=== PATIENT | male | born 1960 | race Two or more races ===

== ENCOUNTER 2024-07-18 19:13 | Emergency (ER) | payer MEDICAID, SELFPAY ==
[2024-07-18 19:24] VITALS: BP 196/106; BP 200/91; PULSE 92; RESP 18; TEMP 36.8; O2SAT 96
--- NOTE | 2024-07-18 19:27 | PD.EDRME ---
Rapid Medical Screening Exam RME Arrival date/time: 07/18/24 19:13 63 year old male present to ED for c/o of dizziness, headache, near syncope today I have greeted and performed a focused initial assessment of this patient. A comprehensive ED assessment and evaluation of the patient, analysis of all test results, and completion of the medical decision making process will be conducted by additional ED providers. Chief Complaint: Headache Time Seen by Provider: 07/18/24 19:15 Vital signs: Vital Signs Temperature 98.2 F 07/18/24 19:24 Pulse Rate 92 07/18/24 19:24 Respiratory Rate 18 07/18/24 19:24 Blood Pressure 200/91 H 07/18/24 19:24 Pulse Oximetry (%) 96 07/18/24 19:24 Oxygen Delivery Method Room Air 07/18/24 19:24
--- NOTE | 2024-07-18 19:28 | XR_ITS ---
Examination: CT brain head without contrast. 2-D sagittal coronal reconstructions Date and time of exam:July 18, 20242001 hrs. Indications: Dizziness with syncopal episode today CTDI: vol (mGy):51.7 DLP: (mGycm):1041 Technique: Multiple CT axial sections of the brain have been obtained, 5 mm slice thickness. Contrast has not been administered. 2-D sagittal, coronal reconstructions have been obtained Low dose protocols were performed. One or more of the following dose reduction techniques were used; automated exposure control, adjustment of the mA and/or KV according to patient size, use of iterative reconstruction technique. Findings: No significant ventricular enlargement. Tiny cerebral calcifications Intra-axial or extra-axial hemorrhage density is not seen. No mass effect or midline shift Basal cisterns are not remarkable. Fourth ventricle is midline. Cranial vault intact. Impression: Negative for acute hemorrhage, mass effect or midline shift
[2024-07-18 20:01] LABS: Basophils # (Auto) 0.1 Thou/mm3 (0.0-0.2); Basophils % (Auto) 1 % (0-2.5); Eosinophils # (Auto) 0.1 Thou/mm3 (0.0-0.5); Eosinophils % (Auto) 1 % (0-10); Hematocrit 49.7 % (41.0-53.0); Hemoglobin 17.7 g/dL (13.5-16.0); Immature Granulocytes % (Auto) 0 % (0-0); Immature Granulocytes Auto 0.03 Thou/mm3 (0.00-0.00); Lymphocytes # (Auto) 1.5 Thou/mm3 (1.0-4.8); Lymphocytes % (Auto) 13 % (10-50); Mean Corpuscular HGB Conc 35.6 g/dl (31.0-37.0); Mean Corpuscular Hemoglobin 32.2 pg (25.0-35.0); Mean Corpuscular Volume 90 fL (80-100); Monocytes # (Auto) 0.6 Thou/mm3 (0.0-0.8); Monocytes % (Auto) 5 % (0-12); Neutrophils # (Auto) 9.1 Thou/mm3 (1.8-7.7); Neutrophils % (Auto) 80 % (37-80); Nucleated Red Blood Cell % 0 /100 WBC (0); Platelet Count 225 Thou/mm3 (140-440); RDW Standard Deviation 42.4 fL (35.1-43.9); White Blood Count 11.3 Thou/mm3 (3.8-10.6)
[2024-07-18 20:02] LABS: Prothrombin Time 11.2 Seconds (9.0-12.2)
[2024-07-18 20:10] LABS: Alanine Aminotransferase 41 U/L (10-49); Albumin, Serum 4.7 gm/dL (3.4-4.8); Albumin/Globulin Ratio 1.6 (1.2-2.2); Alkaline Phosphatase 107 U/L (46-116); Anion Gap 9 (7-16); Aspartate Amino Transferase 29 U/L (0-34); BUN/Creatinine Ratio 19 Ratio (12-20); Bilirubin,Total 0.7 mg/dL (0.3-1.2); Blood Urea Nitrogen 21 mg/dL (9-23); Calcium 9.8 mg/dL (8.3-10.6); Calcium (Corrected) 9.8 mg/dL (8.5-10.1); Carbon Dioxide 23.6 mMol/L (20.0-31.0); Chloride 102 mMol/L (98-107); Creatinine (Component) 1.1 mg/dL (0.6-1.3); Glucose 263 mg/dL (74-106); Osmolality,Calculated 282 (275-295); Potassium 4.2 mMol/L (3.4-5.1); Sodium 135 mMol/L (136-145); Total Protein 7.7 gm/dL (5.7-8.2); Troponin I 0.032 ng/mL (0.0-0.045); eGFR > 60 See Note
[2024-07-18 20:14] LABS: Sed Rate (ESR) 32 mm/hr (0-20)
[2024-07-18 21:28] VITALS: BP 199/101; PULSE 79; RESP 17; TEMP 36.6; O2SAT 98
--- NOTE | 2024-07-18 21:31 | PD.EDHA ---
ED Headache RME/HPI General Chief Complaint: Headache Stated Complaint: HEADACHE Time Seen by Provider: 07/18/24 19:15 Arrival date/time: 07/18/24 19:13 RME / HPI RME / HPI Narrative: 63-year-old male patient with significant history of hypertension, came in for evaluation regarding occipital headache. Onset of symptoms about 5 PM today sudden onset of occipital headache, associated with dizziness, and not feeling well. Pain radiates to the posterior neck and down to the bilateral arms. Denies any slurring of speech patient is ambulatory no blurry vision family check his blood pressure and it was about 170 systolic. In the triage patient was noted to have a blood pressure of 199/101. Denies any chest pain. Related Data Previous Rx's ?Medication ?Instructions ?Recorded ibuprofen 800 mg tablet 800 mg PO TID PRN pain #30 tabs 07/18/24 Allergies Allergy/AdvReac Type Severity Reaction Status Date / Time No Known Allergies Allergy Verified 07/18/24 19:17 Review of Systems Review of Systems Narrative Review of Systems: Review of system reviewed and within normal limits except mentioned in HPI ED Exam Narrative Physical exam: VITAL SIGNS: Reviewed. GENERAL APPEARANCE: Alert and interactive, follows commands, no acute distress, HEAD AND FACE: Non-traumatic. ENT: PERRL, pink conjunctivitis, eyelid no trauma, Mucous membrane moist. NECK: Supple, nontender, no nuchal rigidity. CHEST: No tenderness, no crepitus, no paradoxical movement, no retractions. LUNGS: Clear, well ventilated, symmetric, no rales, no wheezing, no ronchi, no stridor, good breath sounds bilaterally. HEART: Regular rate, regular rhythm, no murmur, no gallops. ABDOMEN: Soft, positive bowel sounds, nondistended, no guarding, nontender, no rebound, no masses, RECTAL: Deferred. GENITAL: Deferred. NEUROLOGICAL: Gross motor function intact sensory function intact, Appropriate for age. MUSCULOSKELETAL: low back nontender, full range of motion. EXTREMITIES: Nontender, full range of motion. SKIN: Color pink, dry, no rash, no lacerations, no abrasions, no contusions. LYMPHATICS: Deferred. Course Quality Measures none Orders Category Date Time Status EKG (ED ONLY) *Do not use* NOW Care 07/18/24 19:[address] head/brain wo con Stat Exams 07/18/24 19:28 Completed EKG (ED Only) Stat Exams 07/18/24 19:28 Ordered CBC Stat Lab 07/18/24 19:37 Completed CMP [Comprehensive Metabolic Panel] Stat Lab 07/18/24 19:37 Completed CRP [C-Reactive Protein] Stat Lab 07/18/24 19:37 Completed ESR [Sed Rate (ESR)] Stat Lab 07/18/24 19:37 Completed INR [Prothrombin Time with INR] Stat Lab 07/18/24 19:37 Completed Troponin I Stat Lab 07/18/24 19:37 Completed HYDROcodone/APAP 10/325 [[place] 10/325] Med 07/18/24 21:30 Discontinued 1 tab PO X1 ONE Ketorolac Inj [Toradol Inj] Med 07/18/24 22:47 Discontinued 30 mg IM X1 ONE NIFEdipine [Procardia] Med 07/18/24 22:48 Discontinued 20 mg PO X1 ONE hydrALAZINE HCL [Apresoline] Med 07/18/24 21:30 Discontinued 25 mg PO X1 ONE Vital Signs Vital signs: Vital Signs Temperature 98.2 F 07/18/24 19:24 Pulse Rate 92 07/18/24 19:24 Respiratory Rate 18 07/18/24 19:24 Blood Pressure 200/91 H 07/18/24 19:24 Pulse Oximetry (%) 96 07/18/24 19:24 Oxygen Delivery Method Room Air 07/18/24 19:24 Headache MDM Narrative MDM Narrative:: 63-year-old male patient with significant history of hypertension, came in for evaluation regarding occipital headache. Onset of symptoms about 5 PM today sudden onset of occipital headache, associated with dizziness, and not feeling well. Pain radiates to the posterior neck and down to the bilateral arms. Denies any slurring of speech patient is ambulatory no blurry vision family check his blood pressure and it was about 170 systolic. In the triage patient was noted to have a blood pressure of 199/101. Denies any chest pain. CT scan of the head came back unremarkable. Patient's workup also all came back normal. Patient was given Toradol IM, Procardia, and hydralazine for elevated blood pressure. Patient data External records reviewed:: None Clinical information provided by:: family Social determinants that could affect healthcare access:: none Patient has the following chronic illnesses:: Hypertension How is presenting disease/condition affected by chronic disease/condition?: exacerbated by Evaluation data The following diagnostics were reviewed and interpreted by me:: lab results and radiology exam(s) Lab and/or radiology exams considered but not ordered:: None Interpretation Summary: CT scan of the head came back unremarkable. Laboratory workup also came back unremarkable. His EKG showed normal sinus rhythm, ventricular rate of 96 bpm, no ST segment elevation depression noted. Medications / Prescriptions Medications or Prescriptions considered but not ordered:: None Medication administrations:: Medication Administration History Discontinued Medications Hydrocodone Bitart/Acetaminophen (Hydrocodone/Apap 10/325 Tab) 1 tab PO X1 ONE Stop: 07/18/24 21:31 Last Admin: 07/18/24 21:56 Dose: 1 tab Documented By: MARY Hydralazine HCl (Hydralazine Hcl 25 Mg Tablet) 25 mg PO X1 ONE Stop: 07/18/24 21:31 Last Admin: 07/18/24 21:55 Dose: 25 mg Documented By: MARY Ketorolac Tromethamine (Ketorolac Inj 60 Mg/2 Ml Vial) 30 mg IM X1 ONE Stop: 07/18/24 22:48 Last Admin: 07/18/24 23:03 Dose: 30 mg Documented By: MARY Nifedipine (Nifedipine 10 Mg Capsule) 20 mg PO X1 ONE Stop: 07/18/24 22:49 Last Admin: 07/18/24 23:02 Dose: 20 mg Documented By: MARY Patient received Procardia, Toradol, hydralazine and [place]. Prior to discharge patient's blood pressure was noted to be 154/77. Patient is not having any headache. Consultations Consultation(s) initiated? (list below): No Diagnosis Differential diagnosis headache: migraine and tension headache Most likely diagnosis given after review of the tests above:: Headache, hypertension Admission Indicated Admission indicated?: not indicated Admission Request Was there a request for admission?: No Disposition Plan Disposition Plan: Discharge Discharge Attestation Discharge Attestation: The patient and all family members were given an opportunity to ask questions and understood the discharge instructions. Discharge instructions specifically effects, indications for sooner follow up or return to the emergency department, and the expected course of current diagnosis. Patient condition: Stable Discharge Plan Plan Patient Disposition: HOME (Self Care) Disposition Comment: Stable Prescriptions/Referrals Prescriptions/Med Rec: New ibuprofen 800 mg tablet 800 mg PO TID PRN (Reason: pain) Qty: 30 0RF Referrals: Montes,Jorge Luis, PA-C [Primary Care Provider] - In 1 week Problem List Clinical Impression: Headache, HTN (hypertension) Patient/Caregiver Discharge Instructions Discharge Activity: activity as tolerated Education Materials: ED High Blood Pressure ... Additional Instructions: Thank you for the opportunity for serving you today. You are stable for discharged . You are advised to: Follow-up with your PCP in 1 to 2 days Return to ED for worsening of symptoms Increase oral fluids Take medication as prescribed Print Language: Croatian Stand Alone Forms: [employer] Award Info., Patient Portal Info Letter PA/QUINTON Supervising Physician PA/QUINTON Supervising Physician: MD Brittany
[2024-07-18 21:55] VITALS: BP 187/90; PULSE 69
[2024-07-18] MEDS: hydrALAZINE HCL 25 MG TABLET PO (21:55)
[2024-07-18] MEDS: HYDROcodone/APAP 10/325 TAB PO (21:56)
[2024-07-18 23:02] VITALS: BP 211/103; PULSE 82
[2024-07-18] MEDS: NIFEdipine 10 MG CAPSULE 20 MG PO (23:02)
[2024-07-18] MEDS: KETOROLAC INJ 60 MG/2 ML VIAL 30 MG IM (23:03)
[2024-07-18 23:30] VITALS: BP 183/89; PULSE 86; RESP 20; O2SAT 95
[2024-07-18 23:45] VITALS: BP 173/87; PULSE 80; RESP 20; O2SAT 95
[2024-07-19] VITALS: BP 154/77; PULSE 77; RESP 16; O2SAT 95
== END 2024-07-19 00:15 | disposition home or self-care (01) ==
PROVIDERS: Physician Assistant; Emergency Provider Emergency Medicine; PCP Physician Assistant
DX: R51.9 Headache, unspecified (principal); I10 Essential (primary) hypertension
CPT/HCPCS: 36415; 70450; 80053; 84484; 85025; 85610; 85652; 86140; 93005; 96372; 99284; J1885; A9270